=== PATIENT | female | born 1955 | race Caucasian/White ===

== ENCOUNTER 2018-10-05 18:05 | Emergency (ER) | payer OTHER, MEDICAID, SELFPAY ==
[2018-10-05 18:08] VITALS: BP 149/101; PULSE 76; RESP 18; TEMP 36.5; O2SAT 100; BMI 26.6
--- NOTE | 2018-10-05 18:15 | ED_ITS ---
HPI - Anxiety General Chief Complaint: Anxiety Stated Complaint: Panic attack, vertigo Time Seen by Provider: 10/05/18 18:15 Source: patient Mode of arrival: EMS Limitations: no limitations History of Present Illness HPI narrative: Patient is a 63-year-old female. States she has never had a problem with anxiety in the past. States she does in [place]. She came to and [place] to visit. When she crossed the large bridges on the way in to town she stated that she felt very uneasy crossing the Bridges. She states that she does not like crossing Bridges. This is not new for her. When she was going to leave town she stated that she was unable to cross the bridge. She had a pole off to the side of the road. Became very anxious. Called the police who offered to drive her across the bridge going very slow however she was unable to. She was brought into the emergency department by EMS. Upon arrival here she stated that she does feel much better. She stated that she has had vertigo in the past. She states that was a month ago. She had no vertigo during this episode. Related Data Allergies Allergy/AdvReac Type Severity Reaction Status Date / Time No Known Drug Allergies Allergy Verified 10/05/18 18:47 Review of Systems Constitutional Denies headache(s) ENT Ears, Nose, Mouth, and Throat: Denies headache(s) Cardiovascular Denies chest pain, Reports palpitations and Reports dyspnea Respiratory Reports dyspnea Musculoskeletal Denies myalgias and Denies arthralgias Integumentary/Breasts Denies rash Neurologic Denies behavioral changes, Denies confusion and Denies headache(s) Psychiatric Reports anxiety, Denies behavioral changes, Denies confusion and Denies depression Endocrine Reports palpitations Allergic/Immunologic Denies urticaria [facility] Medical History Patient denies medical problems (Acute) Social History Smoking Status: Current every day smoker Social History Smoking Status: Current every day smoker Exam Initial Vital Signs Initial Vital Signs: Vital Signs Temperature 97.7 F 10/05/18 18:08 Pulse Rate 76 10/05/18 18:08 Respiratory Rate 18 10/05/18 18:08 Blood Pressure 149/101 H 10/05/18 18:08 Pulse Oximetry 100 10/05/18 18:08 Const General: cooperative, well developed, well groomed and No acute distress Orientation: alert, awake and oriented x3 Resp Effort & Inspection: normal respiratory effort Auscultation: clear to auscultation bilaterally Cardio Rate: regular rate Rhythm: regular rhythm Skin Rashes: no rashes Neuro General: alert and awake Speech: speech normal Psych Appearance: grossly normal and well kempt Speech and Movement: not agitated Mood: anxious mood Affect: normal affect Attitude: cooperative Thought Process: normal Thought Content: no homicidality and suicidality Scores GCS [place] coma scale eye opening: Spontaneous [place] coma scale verbal response: Orientated [place] coma scale motor response: Obey commands [place] coma scale total score: 15 Course Orders Ordered: Discontinued Medications Lorazepam (Ativan) 0.5 mg PO NOW ONE Stop: 10/05/18 18:22 Last Admin: 10/05/18 18:48 Dose: 0.5 mg Vital Signs - 8 hr 10/05/18 18:08 10/05/18 19:28 Temperature 97.7 F Pulse Rate 76 80 Respiratory Rate 18 20 Blood Pressure 149/101 H 152/102 H Pulse Oximetry 100 99 MDM - Anxiety MDM Narrative Medical decision making narrative: Patient is feeling much better. She was given Ativan here in the ER. Her son came to pick her up and drive her home. No SI or HI. For the patient she needed to make contact with the primary provider for follow-up. She expressed understanding and agreement plan. Discharge Plan Departure Patient Disposition: Home Clinical Impression: Acute anxiety Discharge Date/Time: 10/05/18 19:27 Interventions: ED Discharge Assessment Last Done: 10/05/18 19:28 Instructions: DI for Anxiety -- Adult Activity Restrictions/Additional Instructions: Recommend that you make contact with a primary provider. If you are interested you can contact the health natural resources instructor here at [facility] at [phone] if you are interested in a primary provider here in [place]. Return to the ER for any new or worsening symptoms.
[2018-10-05] MEDS: LORazepam 0.5 MG TABLET PO (18:48)
[2018-10-05 19:28] VITALS: BP 152/102; PULSE 80; RESP 20; O2SAT 99
== END 2018-10-05 19:27 | disposition home or self-care (01) ==
PROVIDERS: Emergency Provider Emergency Medicine
DX: F41.9 Anxiety disorder, unspecified (principal)
CPT/HCPCS: 99282; 99283